=== PATIENT | male | born 1970 | race Caucasian/White ===

== ENCOUNTER 2018-05-29 17:17 | Emergency (ER) | payer OTHER ==
[2018-05-29 17:36] VITALS: BP 153/106
--- NOTE | 2018-05-29 18:51 | UC ---
Throat Pain/Nasal Javier HPI - HPI Summary HPI Summary: 47-year-old male presents with one-day history of sore throat. States his and son were recently diagnosed with strep throat. Denies fever, chills, nasal congestion or drainage, ear pain or drainage, chest pain, shortness of breath, cough, abdominal pain, nausea or vomiting. - History of Current Complaint Chief Complaint: UCGeneralIllness Stated Complaint: SORE THROAT Time Seen by Provider: 05/29/18 18:37 Hx Obtained From: Patient Onset/Duration: Gradual Onset, Lasting Days - 1 Severity: Mild Pain Intensity: 6 Cough: None Associated Signs & Symptoms: Negative: Dysphagia, Hoarseness, Sinus Discomfort, Nasal Discharge, Fever, Vomiting, Rash - Allergies/Home Medications Allergies/Adverse Reactions: Allergies Allergy/AdvReac Type Severity Reaction Status Date / Time No Known Allergies Allergy Verified 05/29/18 17:30 Home Medications: Home Medications NK [No Home Medications Reported] 05/29/18 [History Confirmed 05/29/18] PMH/Surg Hx/FS Hx/Imm Hx Previously Healthy: Yes - denies significant past medical history - Surgical History Surgical History: None - Family History Family History: Noncontributory - Social History Occupation: Employed Full-time Lives: With Family Alcohol Use: Daily Alcohol Amount: 6 pack 4 or 5 days/ week Substance Use Type: None Smoking Status (MU): Never Smoked Tobacco - Immunization History Most Recent Influenza Vaccination: no Review of Systems Constitutional: Negative Skin: Negative Eyes: Negative ENT: Sore Throat Respiratory: Negative Cardiovascular: Negative Gastrointestinal: Negative Is Patient Immunocompromised?: No All Other Systems Reviewed And Are Negative: Yes Physical Exam Triage Information Reviewed: Yes Appearance: Well-Appearing, No Pain Distress, Well-Nourished Vital Signs: Initial Vital Signs Temp 98.7 F 05/29/18 17:31 Pulse 80 05/29/18 17:31 Resp 16 05/29/18 17:31 BP 153/106 05/29/18 17:31 Pulse Ox 99 05/29/18 17:31 Eye Exam: Normal Eyes: Positive: Conjunctiva Clear. Negative: Discharge ENT: Positive: Hearing grossly normal, Pharyngeal erythema - Mild, TMs normal, Uvula midline. Negative: Nasal congestion, Nasal drainage, Tonsillar swelling, Tonsillar exudate, Trismus, Muffled voice, Hoarse voice, Sinus tenderness Neck: Positive: Supple, Nontender, No Lymphadenopathy Respiratory: Positive: Lungs clear, Normal breath sounds, No respiratory distress Cardiovascular: Positive: RRR, No Murmur Neurological: Positive: Alert Skin Exam: Normal Throat Pain/Nasal Course/Dx - Course Course Of Treatment: 47-year-old male with one-day history of sore throat. Exam was unremarkable except for some mild pharyngeal erythema. Rapid strep was negative. Symptoms are likely viral in origin. Recommend symptomatic treatment. - Differential Dx/Diagnosis Provider Diagnoses: viral pharyngitis Discharge - Sign-Out/Discharge Documenting (check all that apply): Patient Departure All imaging exams completed and their final reports reviewed: No Studies - Discharge Plan Condition: Stable Disposition: HOME Patient Education Materials: Pharyngitis (ED) Referrals: No Primary Care Phys,NOPCP [Primary Care Provider] - [facility] [Outside] Additional Instructions: The rapid strep test for blood in the clinic this evening was negative. Your symptoms are likely from a viral infection. Viral infections typically runs a course of about 7-10 days. Use salt water gargles several times a day for your sore throat. He may take acetaminophen (Tylenol) or ibuprofen (Advil, Motrin) according to directions as needed for any pain. You may also use Chloraseptic spray or Cepacol lozenges for some temporary pain relief. Be sure to drink plenty of fluids and stay well-hydrated. Return here or follow up with primary care provider if your symptoms persist for more than 2 weeks. Your blood pressure in the clinic today was elevated. He should make an appointment with a primary care provider within the next 4 weeks to have this rechecked. I have given you the number for the [facility] physician referral service if you need assistance with establishing with a provider. - Billing Disposition and Condition Condition: STABLE Disposition: Home
== END 2018-05-29 18:57 | disposition home or self-care (01) ==
LOC: UCEAST 17:17
DX: J02.8 Acute pharyngitis due to other specified organisms (principal)
CPT/HCPCS: 87651; 99201; G0463